=== PATIENT | male | born 1960 | race Caucasian/White ===

== ENCOUNTER 2019-06-28 04:43 | Emergency (ER) | payer OTHER ==
[~2019-06-28] VITALS: Ht 165.1 cm; Wt 117.9 kg
[2019-06-28 04:47] VITALS: Ht 165.1 cm; Wt 117.9 kg
[2019-06-28 05:33] LABS: CALCIUM 8.9 mg/dL (8.5-10.1); CARBON DIOXIDE 26.8 mmol/L (21-32); CHLORIDE SERUM 103 mmol/L (98-107); GFR1 > 60 mL/min; GLUCOSE SERUM 116 mg/dL (74-106); POTASSIUM SERUM 4.2 mmol/L (3.5-5.1); SODIUM SERUM 139 mmol/L (136-145)
[2019-06-28 05:37] LABS: ALBUMIN 3.6 g/dL (3.4-5.0); ALKALINE PHOSPHATASE 92 U/L (46-116); ALT/SGPT 27 U/L (16-63); AST/SGOT 20 U/L (15-37); BILIRUBIN TOTAL 0.64 mg/dL (0.20-1.00)
[2019-06-28 05:40] LABS: TOTAL PROTEIN, SERUM 8.3 g/dL (6.4-8.2)
[2019-06-28 05:49] LABS: BASOPHIL % 0.3 % (0-2); PLATELET COUNT 149 x10^3mcL (130-400); RED CELL DISTRIBUTION WIDTH 14.3 % (11.5-14.5)
[2019-06-28 09:08] VITALS: BP 146/59
== END 2019-06-28 09:08 | disposition short-term general hospital (02) ==
LOC: ED 04:43
PROVIDERS: Student in an Organized Health Care Education/Training Program
DX: S05.12XA Contusion of eyeball and orbital tissues, left eye, initial encounter (principal); S09.8XXA Other specified injuries of head, initial encounter; E78.00 Pure hypercholesterolemia, unspecified; M19.90 Unspecified osteoarthritis, unspecified site; H57.12 Ocular pain, left eye; Y04.2XXA Assault by strike against or bumped into by another person, initial encounter; Y93.89 Activity, other specified; Y92.89 Other specified places as the place of occurrence of the external cause; Y99.8 Other external cause status
CPT/HCPCS: 90715; J0690; J2270; J2405; J3010; Q0092

== ENCOUNTER 2020-07-28 09:07 | Inpatient (IN) | payer OTHER ==
[~2020-07-28] VITALS: Ht 175.3 cm; Wt 131.5 kg
[2020-07-28 09:20] VITALS: Ht 175.3 cm; Wt 131.5 kg
[2020-07-28 10:07] LABS: BASOPHIL % 0.5 % (0.2-1.5); PLATELET COUNT 174 x10^3mcL (152-348); RED CELL DISTRIBUTION WIDTH 13.9 % (12.1-16.2)
[2020-07-28 14:01] LABS: CARBON DIOXIDE 20.9 mmol/L (21-32); CHLORIDE SERUM 102 mmol/L (98-107); CREATININE SERUM 0.8 mg/dL (0.7-1.3); GFR1 > 60 mL/min; GLUCOSE SERUM 92 mg/dL (74-106); POTASSIUM SERUM 4.4 mmol/L (3.5-5.1); SODIUM SERUM 139 mmol/L (136-145)
[2020-07-28 14:07] LABS: ALBUMIN 3.4 g/dL (3.4-5.0); ALKALINE PHOSPHATASE 89 U/L (46-116); ALT/SGPT 27 U/L (16-63); AST/SGOT 35 U/L (15-37); BILIRUBIN TOTAL 0.8 mg/dL (0.20-1.00); CHOLESTEROL 144 mg/dL (<200); HDL CHOLESTEROL 54 mg/dL (40-60); MAGNESIUM 2.2 mg/dL (1.8-2.4); PHOSPHOROUS 3.2 mg/dL (2.5-4.9)
[2020-07-28 14:09] LABS: TOTAL PROTEIN, SERUM 8.3 g/dL (6.4-8.2)
[2020-07-28 15:41] VITALS: BP 151/83
[2020-07-28 16:00] VITALS: BP 142/87
[2020-07-28 23:15] VITALS: BP 164/90
[2020-07-29 05:55] VITALS: BP 149/72
[2020-07-29 07:59] LABS: BASOPHIL % 0.4 % (0.2-1.5)
[2020-07-29 08:07] LABS: PLATELET COUNT 214 x10^3mcL (152-348)
[2020-07-29 08:27] LABS: ALKALINE PHOSPHATASE 87 U/L (46-116); ALT/SGPT 22 U/L (16-63); AST/SGOT 24 U/L (15-37); BILIRUBIN TOTAL 0.96 mg/dL (0.20-1.00); CALCIUM 8.8 mg/dL (8.5-10.1); CARBON DIOXIDE 24.4 mmol/L (21-32); CHLORIDE SERUM 98 mmol/L (98-107); CREATININE SERUM 0.8 mg/dL (0.7-1.3); GFR1 > 60 mL/min; GLUCOSE SERUM 79 mg/dL (74-106); MAGNESIUM 2.6 mg/dL (1.8-2.4); POTASSIUM SERUM 4.2 mmol/L (3.5-5.1); SODIUM SERUM 131 mmol/L (136-145); TOTAL PROTEIN, SERUM 7.9 g/dL (6.4-8.2)
[2020-07-29 08:33] LABS: ALBUMIN 3.1 g/dL (3.4-5.0)
[2020-07-29 08:44] VITALS: BP 138/76
[2020-07-29 10:18] LABS: rbc morphology (normal/abnorm) NORMAL (NORMAL)
[2020-07-29 12:24] VITALS: BP 126/68
[2020-07-29 17:07] VITALS: BP 127/78
[2020-07-29 20:30] VITALS: BP 129/62
[2020-07-30 05:00] VITALS: BP 118/61
[2020-07-30 07:28] LABS: BASOPHIL % 0.4 % (0.2-1.5); PLATELET COUNT 214 x10^3mcL (152-348); RED CELL DISTRIBUTION WIDTH 13.8 % (12.1-16.2)
[2020-07-30 08:15] LABS: ALKALINE PHOSPHATASE 81 U/L (46-116); ALT/SGPT 23 U/L (16-63); AST/SGOT 19 U/L (15-37); BILIRUBIN TOTAL 0.4 mg/dL (0.20-1.00); CALCIUM 8.5 mg/dL (8.5-10.1); CARBON DIOXIDE 25.3 mmol/L (21-32); CHLORIDE SERUM 105 mmol/L (98-107); CREATININE SERUM 0.8 mg/dL (0.7-1.3); GFR1 > 60 mL/min; GLUCOSE SERUM 90 mg/dL (74-106); MAGNESIUM 2.3 mg/dL (1.8-2.4); SODIUM SERUM 140 mmol/L (136-145); TOTAL PROTEIN, SERUM 7.5 g/dL (6.4-8.2)
[2020-07-30 12:00] VITALS: BP 137/77
[2020-07-30 17:24] VITALS: BP 147/78
[2020-07-30 21:33] VITALS: BP 136/67
[2020-07-31 06:23] VITALS: BP 149/74
[2020-07-31 08:00] LABS: BASOPHIL % 0.5 % (0.2-1.5); PLATELET COUNT 156 x10^3mcL (152-348); RED CELL DISTRIBUTION WIDTH 13.5 % (12.1-16.2)
[2020-07-31 08:37] LABS: ALKALINE PHOSPHATASE 80 U/L (46-116); ALT/SGPT 22 U/L (16-63); AST/SGOT 21 U/L (15-37); BILIRUBIN TOTAL 0.4 mg/dL (0.20-1.00); CALCIUM 8.4 mg/dL (8.5-10.1); CARBON DIOXIDE 26.1 mmol/L (21-32); CHLORIDE SERUM 106 mmol/L (98-107); CREATININE SERUM 0.7 mg/dL (0.7-1.3); GFR1 > 60 mL/min; GLUCOSE SERUM 85 mg/dL (74-106); MAGNESIUM 2.2 mg/dL (1.8-2.4); POTASSIUM SERUM 3.9 mmol/L (3.5-5.1); SODIUM SERUM 139 mmol/L (136-145); TOTAL PROTEIN, SERUM 7.4 g/dL (6.4-8.2)
[2020-07-31 08:39] LABS: ALBUMIN 2.9 g/dL (3.4-5.0)
[2020-07-31 10:08] VITALS: BP 133/75
[2020-07-31 12:40] VITALS: BP 128/75
[2020-07-31 17:09] VITALS: BP 148/83
[2020-07-31 20:31] VITALS: BP 128/74
[2020-08-01 05:06] VITALS: BP 143/79
[2020-08-01 07:42] LABS: BASOPHIL % 0.5 % (0.2-1.5); PLATELET COUNT 156 x10^3mcL (152-348); RED CELL DISTRIBUTION WIDTH 13.8 % (12.1-16.2)
[2020-08-01 07:56] LABS: ALBUMIN 2.9 g/dL (3.4-5.0); ALKALINE PHOSPHATASE 77 U/L (46-116); ALT/SGPT 21 U/L (16-63); AST/SGOT 22 U/L (15-37); BILIRUBIN TOTAL 0.35 mg/dL (0.20-1.00); CALCIUM 8.4 mg/dL (8.5-10.1); CARBON DIOXIDE 25.5 mmol/L (21-32); CHLORIDE SERUM 103 mmol/L (98-107); CREATININE SERUM 0.7 mg/dL (0.7-1.3); GFR1 > 60 mL/min; GLUCOSE SERUM 94 mg/dL (74-106); MAGNESIUM 2.2 mg/dL (1.8-2.4); SODIUM SERUM 136 mmol/L (136-145); TOTAL PROTEIN, SERUM 7.5 g/dL (6.4-8.2)
[2020-08-01 08:46] VITALS: BP 127/71
[2020-08-01 12:14] VITALS: BP 117/96
[2020-08-01 13:20] LABS: rbc morphology (normal/abnorm) NORMAL (NORMAL)
[2020-08-01 16:03] VITALS: BP 110/72
[2020-08-01 17:52] LABS: AMPHETAMINE QUAL UR NONE DETECTED (See below)
[2020-08-01 22:03] VITALS: BP 137/71
[2020-08-02 05:51] VITALS: BP 143/75
[2020-08-02 08:32] LABS: BASOPHIL % 0.5 % (0.2-1.5); PLATELET COUNT 175 x10^3mcL (152-348); RED CELL DISTRIBUTION WIDTH 13.9 % (12.1-16.2)
[2020-08-02 08:57] VITALS: BP 106/56
[2020-08-02 09:32] LABS: rbc morphology (normal/abnorm) NORMAL (NORMAL)
[2020-08-02 09:51] LABS: ALKALINE PHOSPHATASE 84 U/L (46-116); ALT/SGPT 24 U/L (16-63); AST/SGOT 32 U/L (15-37); BILIRUBIN TOTAL 0.52 mg/dL (0.20-1.00); CALCIUM 8.9 mg/dL (8.5-10.1); CARBON DIOXIDE 24.2 mmol/L (21-32); CHLORIDE SERUM 102 mmol/L (98-107); CREATININE SERUM 0.6 mg/dL (0.7-1.3); GFR1 > 60 mL/min; GLUCOSE SERUM 97 mg/dL (74-106); MAGNESIUM 2.5 mg/dL (1.8-2.4); POTASSIUM SERUM 4.4 mmol/L (3.5-5.1); SODIUM SERUM 134 mmol/L (136-145); TOTAL PROTEIN, SERUM 8.1 g/dL (6.4-8.2)
[2020-08-02 12:17] VITALS: BP 138/75
[2020-08-02 17:09] VITALS: BP 123/71
[2020-08-02 22:15] VITALS: BP 124/77
[2020-08-03 05:08] VITALS: BP 124/66
[2020-08-03 09:13] VITALS: BP 136/73
[2020-08-03 12:32] VITALS: BP 152/77
[2020-08-03 17:11] VITALS: BP 146/74
[2020-08-03 21:09] VITALS: BP 131/72
[2020-08-04 06:17] VITALS: BP 136/76
[2020-08-04 09:53] VITALS: BP 167/82
[2020-08-04 12:50] VITALS: BP 116/63
[2020-08-04 17:45] VITALS: BP 119/68
[2020-08-04 21:27] VITALS: BP 139/63
[2020-08-05 04:50] VITALS: BP 142/70
[2020-08-05 09:30] VITALS: BP 141/76
[2020-08-05 12:45] VITALS: BP 135/71
[2020-08-05 16:35] VITALS: BP 135/76
[2020-08-05 21:23] VITALS: BP 92/59
[2020-08-06 05:11] VITALS: BP 129/68
[2020-08-06 09:18] VITALS: BP 119/63
[2020-08-06 13:31] VITALS: BP 121/62
[2020-08-06 17:30] VITALS: BP 104/65
[2020-08-06 20:38] VITALS: BP 136/66
[2020-08-07 06:41] VITALS: BP 129/70
[2020-08-07 07:26] LABS: BASOPHIL % 0.5 % (0.2-1.5); PLATELET COUNT 156 x10^3mcL (152-348); RED CELL DISTRIBUTION WIDTH 13.7 % (12.1-16.2)
[2020-08-07 07:42] LABS: CALCIUM 8.8 mg/dL (8.5-10.1); CARBON DIOXIDE 30.5 mmol/L (21-32); CHLORIDE SERUM 105 mmol/L (98-107); CREATININE SERUM 0.9 mg/dL (0.7-1.3); GFR1 > 60 mL/min; GLUCOSE SERUM 111 mg/dL (74-106); POTASSIUM SERUM 4.6 mmol/L (3.5-5.1); SODIUM SERUM 141 mmol/L (136-145)
[2020-08-07 08:49] LABS: rbc morphology (normal/abnorm) NORMAL (NORMAL)
[2020-08-07 10:47] VITALS: BP 123/55
[2020-08-07 10:49] VITALS: BP 105/61
[2020-08-07 13:57] VITALS: BP 141/60
[2020-08-07] MEDS ORDERED: TRA50 PO (14:47)
[2020-08-07] MEDS ORDERED: TYL325 PO (14:48)
[2020-08-07 17:12] VITALS: BP 105/61
[2020-08-07 17:58] VITALS: BP 122/70
== END 2020-08-07 18:45 | DRG 139 ==
LOC: ED 09:07 → DU 12:44
PROVIDERS: Emergency Medicine; Internal Medicine; ADMIT Internal Medicine; ATTEND Internal Medicine
DX: J18.9 Pneumonia, unspecified organism (principal); E11.9 Type 2 diabetes mellitus without complications; E78.00 Pure hypercholesterolemia, unspecified; F15.10 Other stimulant abuse, uncomplicated; G47.00 Insomnia, unspecified; F29 Unspecified psychosis not due to a substance or known physiological condition; M19.90 Unspecified osteoarthritis, unspecified site; Z79.899 Other long term (current) drug therapy; Z79.891 Long term (current) use of opiate analgesic; Z79.01 Long term (current) use of anticoagulants; Z87.820 Personal history of traumatic brain injury; Z79.84 Long term (current) use of oral hypoglycemic drugs
CPT/HCPCS: 85378; 97110-GP; 97530-GP; G0378; G0480; J0456; J0696; J1630; J2060; J7030; J7050; J7060; U0003